=== PATIENT | female | born 1980 | race African-American/Black ===

== ENCOUNTER 2017-04-05 08:17 | Emergency (ER) | payer OTHER ==
[~2017-04-05] VITALS: Ht 162.6 cm; Wt 71.2 kg
[2017-04-05 08:49] VITALS: BP 132/83
[2017-04-05] MEDS ORDERED: SODIUM CHLORIDE 0.9% 1,000 ML IV ONE (09:00)
[2017-04-05 09:07] LABS: Basophils # (auto) 0.1 uL; Eosinophils # (auto) 0.1 uL; Eosinophils % (auto) 0.7 % (0.0-7.0); Hemoglobin 8.6 g/dL (12.2-16.2); Lymphocytes # (auto) 1.5 uL; Mean Corpuscular Volume 63.4 fL (80.0-100.0)
[2017-04-05 09:09] LABS: Basophils % (auto) 0.6 % (0.0-2.0); Hematocrit 28.4 % (36.0-46.0); Lymphocytes % (auto) 14.4 % (10.0-50.0); Mean Corpuscular Hemoglobin 19.1 pg (28.0-32.0); Mean Corpuscular Hgb Conc. 30.2 g/dL (32.0-36.0); Mean Platelet Volume 9.1 fL (6.9-10.8); Monocytes # (auto) 0.5 uL; Neutrophils # (auto) 8.3 uL; Neutrophils % (auto) 79.3 % (37.0-80.0); Platelet Count (auto) 450 10^3/uL (140-450); White Blood Cell 10.5 10^3/uL (4.4-10.8)
[2017-04-05 09:21] LABS: Urine Bilirubin Negative (Negative); Urine Blood 3+ /uL (Negative); Urine Glucose Normal (Normal); Urine Ketone Negative (Negative); Urine Mucus FEW (None Seen); Urine Nitrite Negative (Negative); Urine RBC 2834 /hpf (0 - 4); Urine Squamous Epithelial Cell MOD /hpf (<5); Urine pH 8.5 (5.0-8.0)
[2017-04-05 09:22] LABS: Urine Color Pink (Yellow)
[2017-04-05 09:28] LABS: Red Cell Distribution Width 20.5 % (11.8-14.3)
[2017-04-05 09:54] LABS: Anisocytosis Moderate; Platelet Estimate Adequate
[2017-04-05 09:55] LABS: Burr Cells FEW; Hypochromia Moderate; Microcytosis Moderate; Ovalocytes FEW; Tear Drop Cells FEW
== END 2017-04-05 10:20 | disposition home or self-care (01) ==
LOC: ER 08:17
DX: N39.0 Urinary tract infection, site not specified (principal)
CPT/HCPCS: 36415; 81001; 84702; 85025; 96360